=== PATIENT | male | born 1940 | race Caucasian/White ===

== ENCOUNTER 2019-04-11 11:19 | Day surgery (SDC) | payer MEDICARE, MEDICAID ==
[~2019-04-11] VITALS: Ht 177.8 cm; Wt 62.4 kg
[2019-04-11] MEDS ORDERED: normal saline 1000ml 1,000 ML IV SCH (12:00)
[2019-04-11] MEDS ORDERED: FOLI0.4T2 PO (12:21)
[2019-04-11] MEDS ORDERED: CHOL10002 PO (12:21)
[2019-04-11] MEDS ORDERED: NEBULIZER (12:21)
[2019-04-11] MEDS ORDERED: BENZ-38 PO (12:21)
[2019-04-11] MEDS ORDERED: midazolam 2 mg/2 ml injection IV PRN (13:25)
[2019-04-11] MEDS ORDERED: fentaNYL/PF 50MCG/1 ML 2ML syringe IV PRN (13:25)
[2019-04-11] MEDS ORDERED: LIDOcaine 1%/PF 5ML 10 MG/ML VIAL SQ ONE (13:25)
[2019-04-11 14:00] VITALS: BP 136/78
[2019-04-11] MEDS ORDERED: midazolam 2 mg/2 ml injection ONE (14:01)
[2019-04-11] MEDS ORDERED: fentaNYL/PF 50MCG/1 ML 2ML syringe ONE (14:01)
--- NOTE | 2019-04-11 15:30 | NUR ---
PROCEDURE CANCELLED. PT REFERRED BACK TO PCP FOR FURTHER EVALUATION. PT AMBULATED TO HOSPITAL ENTRANCE AND WAS DISCHARGED HOME. PT HAD ALL BELONGINGS.
== END 2019-04-11 15:30 | disposition home or self-care (01) ==
LOC: SSTAY O 11:19
PROVIDERS: ATTEND Radiology Diagnostic Radiology
DX: R91.1 Solitary pulmonary nodule (principal); Z53.8 Procedure and treatment not carried out for other reasons
CPT/HCPCS: J2250; J3010